=== PATIENT | female | born 1980 | race Caucasian/White ===

== ENCOUNTER 2017-05-04 23:36 | Emergency (ER) | payer OTHER ==
[~2017-05-04] VITALS: Ht 165.1 cm; Wt 83.9 kg
[~2017-05-04 23:36] MED LIST: AUGMENTIN 875875 M1 PO; BACTRIM DS TAB1 EACH PO; BENTYL20 MG PO; CIPROFLOXACIN500 M1 PO; DOXYCYCLINE 10100 MG PO; FLAGYL500 MG PO; FLEXERIL PO; MACROBID 100 M100 M1 PO; MOBIC7.5 M1 PO; NAPROSYN500 MG PO; NOHOMEMEDICATIONS; NORCO 5-325 TA1 EACH PO; NORFLEX100 MG PO; PERCOCET 5-3251 EACH PO; PREDNISONE 20 M20 M1 PO; PRENATAL; PROVERA10 MG PO; ROBAXIN 750 MG750 MG PO
[2017-05-05] MEDS ORDERED: PREDNISONE 20 M20 MG PO (00:33)
[2017-05-05] MEDS ORDERED: PROAIR HFA8.5 GM INH (00:33)
[2017-05-05] MEDS ORDERED: ZPAK PO (00:33)
[2017-05-05 00:55] VITALS: BP 132/87
== END 2017-05-05 00:55 | disposition home or self-care (01) ==
LOC: M.ERS 23:36
DX: J02.9 Acute pharyngitis, unspecified (principal); J18.9 Pneumonia, unspecified organism

== ENCOUNTER 2019-03-04 15:03 | Emergency (ER) | payer OTHER ==
[~2019-03-04] VITALS: Ht 165.1 cm; Wt 92.5 kg
[~2019-03-04 15:03] MED LIST changes: +PREDNISONE 20 M20 MG PO; +PROAIR HFA8.5 GM INH; +ZPAK PO
[2019-03-04 15:40] LABS: URINE BILIRUBIN NEGATIVE (Negative); URINE BLOOD NEGATIVE (Negative); URINE CLARITY SL CLOUDY; URINE COLOR YELLOW; URINE GLUCOSE-RANDOM NEGATIVE (Negative); URINE KETONES NEGATIVE (Negative); URINE LEUKOCYTES-REFLEX 1+ (Negative); URINE PROTEIN NEGATIVE (Negative); URINE UROBILINOGEN 0.2 E.U./dl (0.2-1.0)
[2019-03-04 15:41] LABS: URINE NITRITE-REFLEX POSITIVE (Negative)
[2019-03-04 15:46] LABS: SQUAMOUS >10 Many /LPF (0-3)
[2019-03-04 15:48] LABS: BACTERIA-REFLEX >30 Many /HPF (None Seen); CASTS None Seen /LPF (None Seen); MUCUS 4-6 Moderate strn/LPF (None Seen); URINE RBC None Seen /HPF (0-2); URINE WBC-REFLEX 6-15 Few /HPF (0-5); WBC CLUMPS Moderate (None Seen)
[2019-03-04 15:49] LABS: CRYSTALS None Seen /LPF (None Seen)
[2019-03-04 15:49] LABS: ABSOLUTE BASOPHILS 0.1 thou/uL (0.0-0.2); ABSOLUTE EOSINOPHILS 0.1 thou/uL (0.0-0.7); ABSOLUTE LYMPHOCYTES 1.9 thou/uL (0.8-5.3); ABSOLUTE MONOCYTES 0.6 thou/uL (0.0-1.2); BASOPHILS 1.1 %; EOSINOPHILS 1.1 %; HEMATOCRIT 40.4 % (37.0-47.0); HEMOGLOBIN 13.6 gm/dL (12.0-15.0); LYMPHOCYTES 19.3 %; MCHC 33.7 g/dL (28.0-37.0); MONOCYTES 6.3 %; MPV 10.1 fl. (7.2-11.1); NUCLEATED RBCS 0 /100WBC; PLATELET COUNT* 252 thou/uL (150-400); POLYS 72.2 %; RBC 4.39 mil/uL (4.20-5.00); RDW-CV 13.6 % (10.5-14.5); WBC 9.7 thou/uL (4.0-11.0)
[2019-03-04 15:58] LABS: CALCIUM 8.5 mg/dL (8.5-10.1); CREATININE 1.1 mg/dL (0.6-1.3); POTASSIUM 3.9 mmol/L (3.5-5.1)
[2019-03-04 16:02] LABS: ALBUMIN 3.3 g/dL (3.4-5.0); TOTAL BILIRUBIN 0.1 mg/dL (<0.1-1.0); TOTAL PROTEIN 6.6 g/dL (6.4-8.2)
[2019-03-04] MEDS ORDERED: CIPRO500 MG PO (17:54)
[2019-03-04] MEDS ORDERED: NORCO 5-325 TA1 EAC1 PO (17:54)
[2019-03-04] MEDS ORDERED: FLAGYL500 M1 PO (17:54)
[2019-03-04] MEDS ORDERED: PROTONIX 20 MG20 M1 PO (17:55)
[2019-03-04 18:44] VITALS: BP 129/93
== END 2019-03-04 18:45 | disposition home or self-care (01) ==
LOC: M.ERS 15:03
PROVIDERS: Physician Assistant
DX: K52.9 Noninfective gastroenteritis and colitis, unspecified (principal); K29.70 Gastritis, unspecified, without bleeding; N39.0 Urinary tract infection, site not specified; F17.210 Nicotine dependence, cigarettes, uncomplicated; Z90.49 Acquired absence of other specified parts of digestive tract; Z90.710 Acquired absence of both cervix and uterus